=== PATIENT | male | born 1975 | race Caucasian/White ===

== ENCOUNTER 2024-07-29 12:13 | Outpatient (CLI) | payer OTHER, SELFPAY ==
--- NOTE | ~2024-07-29 | XR_ITS ---
Lumbosacral Spine: AP and lateral views Clinical History: Pain Findings: The normal lordotic curve is maintained. The vertebral bodies and posterior elements are i ntact. There are mild degenerative disc changes at L4-L5 and L5-S1.. There is extensive facet joint a rthropathy and lumbar spine. The sacroiliac joints are normally outlined. Impression: Moderate degenerative change, as above. Reviewed, dictated and finalized at location [facility] Impression: Moderate degenerative change, as above.
== END 2024-07-29 12:14 | disposition home or self-care (01) ==
LOC: GOSHIMG 12:17
PROVIDERS: PCP Physician Assistant; Visit Provider Physician Assistant
DX: M51.369 Other intervertebral disc degeneration, lumbar region without mention of lumbar back pain or lower extremity pain (principal); M51.379 Other intervertebral disc degeneration, lumbosacral region without mention of lumbar back pain or lower extremity pain; M47.896 Other spondylosis, lumbar region
CPT/HCPCS: 72100